=== PATIENT | male | born 1960 | race Hispanic/Latino ===

== ENCOUNTER → 2021-09-29 | Emergency (ER) | payer MEDICAID ==
[~2021-09-29] MED LIST: Dexamethasone 4 mg/ml Vial ONE; Sodium Chloride 3% 500 ML IVPB SCH
[2021-09-29 19:44] LABS: SARS-CoV-2 NAA Rapid Test DETECTED (NotDetected)
== END | disposition home or self-care (01) ==
LOC: CSHERS 16:38
DX: U07.1 COVID-19 (principal); R41.82 Altered mental status, unspecified; G93.89 Other specified disorders of brain; E11.9 Type 2 diabetes mellitus without complications
CPT/HCPCS: 31500; 70450; 71045; 94002; 94760; 96365; 96366; 96374; J1100; J7131; U0002

== ENCOUNTER 2021-11-04 10:01 | Outpatient (CLI) | payer OTHER | END 2021-11-04 10:02 | disposition home or self-care (01) | LOC: CSHMRI 10:01 | PROVIDERS: ATTEND Radiology Radiation Oncology | DX: D49.6 Neoplasm of unspecified behavior of brain (principal); C79.31 Secondary malignant neoplasm of brain; G93.6 Cerebral edema | CPT/HCPCS: 70553 ==